=== PATIENT | female | born 1970 | race Caucasian/White ===

== ENCOUNTER 2021-10-16 09:42 | Outpatient (CLI) | payer OTHER ==
--- NOTE | 2021-10-16 13:57 | MRI Report ---
PROCEDURE: Shoulder LT W/O INDICATIONS: BRACHIAL PLEXUS DISORDER TECHNIQUE: Noncontrast oblique coronal T2 fast spin echo with fat saturation, oblique sagittal T1 spin echo and T2 fast spin echo with fat saturation, axial T1 spin echo and T2 fast spin echo with fat saturation t hrough the shoulder. COMPARISON: None. FINDINGS: Image quality: Excellent. Rotator cuff: Mild supraspinatus and infraspinatus tendinosis. The teres minor tendon is intact. The subscapularis tendon is also intact. No significant rotator cuff tendon tear is seen. No disproporti tomasa rotator cuff muscle atrophy. Bones and bursae: No acute bone marrow contusion or fracture. Chronic traction cystic changes are se en at the posterosuperior humeral head. Moderate degenerative changes are seen at the acromioclavicu lar joint with subchondral edema and mild subchondral cystic changes. No pathologic subacromial/subde ltoid bursal fluid is present. No significant glenohumeral joint effusion is present. Capsule and soft tissues: No large displaced labral tear. The long head of the biceps tendon is inta ct. The rotator interval appears normal, without fibrosis. The inferior glenohumeral ligament is nor mal in thickness. Left axillary lymph nodes are seen measuring up to 8 mm in short axis diameter wit h preserved fatty destiny, likely benign. No mass is seen along the course of the axillary nerve or the included portions of the brachial plexus. IMPRESSION: 1.Mild supraspinatus and infraspinatus tendinosis. No significant rotator cuff tendon tear. No focal muscle atrophy or denervation changes are seen. 2.Moderate acromioclavicular joint osteoarthrosis with subchondral edema and subchondral cystic barnett es. Reviewed by: Jay Kaba MD on 10/16/2021 1:56 PM PDT Approved by: Jay Kaba MD on 10/16/2021 1:56 PM PDT Station ID: [id number]
--- NOTE | 2021-10-16 14:35 | MRI Report ---
PROCEDURE: Cervical Spine W/O INDICATIONS: BROCIAL PLEXUS DISORDER TECHNIQUE: Noncontrast sagittal T1 spin echo and T2 fast spin echo, sagittal STIR, foraminal oblique sagittal T2 fast spin echo, and axial gradient echo or T2 fast spin echo through the cervical spine. COMPARISON: None. FINDINGS: Image quality: Excellent. Alignment and Curvature: There is trace retrolisthesis of C5 on C6. Bone Marrow: Marrow demonstrates normal overall signal. Spinal Cord: Visualized spinal cord has normal size and signal. No cerebellar tonsillar herniation. Paraspinous Soft Tissues: No paravertebral masses. Prevertebral soft tissues are normal in thicknes s. Discs Moderate disc desiccation is present at C5-6. C2-C3: No disc bulge, spinal stenosis or foraminal narrowing. C3-C4: No disc bulge, spinal stenosis or foraminal narrowing. C4-C5: Minimal disc bulge without spinal stenosis or foraminal narrowing. C5-C6: Mild disc bulge with small superimposed posterior left posterior paracentral protrusion with indentation of the anterior thecal sac as well as anterior cord. Mild to moderate bilateral foraminal narrowing. C6-C7: Minimal disc bulge without spinal stenosis or foraminal narrowing. C7-T1: No disc bulge, spinal stenosis or foraminal narrowing. IMPRESSION: Mild disc bulge with superimposed protrusion at C5-6. Mild to moderate bilateral foraminal narrowing at C5-6. Reviewed by: Jaqueline Garcia MD on 10/16/2021 2:33 PM PDT Approved by: Jaqueline Garcia MD on 10/16/2021 2:33 PM PDT Station ID: [id number]
== END 2021-10-16 09:43 | disposition home or self-care (01) ==
LOC: DI 09:42
PROVIDERS: ATTEND Student in an Organized Health Care Education/Training Program
DX: M75.82 Other shoulder lesions, left shoulder (principal); M19.012 Primary osteoarthritis, left shoulder; R93.6 Abnormal findings on diagnostic imaging of limbs; M50.222 Other cervical disc displacement at C5-C6 level; M48.02 Spinal stenosis, cervical region

== ENCOUNTER 2021-12-10 07:48 | Outpatient (CLI) | payer OTHER ==
--- NOTE | 2021-12-10 12:44 | XRAY Report ---
PROCEDURE: Shoulder 3 View LT INDICATIONS: LEFT SHOULDER PAIN TECHNIQUE: 4 views of the shoulder were acquired. COMPARISON: MRI left shoulder, 10/16/2021. FINDINGS: Bones: No fractures or dislocations. No suspicious bony lesions. Mild acromioclavicular and glenoh umeral joint degeneration. Visualized ribs appear intact. Soft tissues: Calcific densities over the humeral head are suspicious for rotator cuff calcific tendi nitis. IMPRESSION: 1. Mild degenerative joint disease. 2. Rotator cuff calcific tendinitis. Reviewed by: Rony Sanchez MD on 12/10/2021 12:42 PM PDT Approved by: Rony Sanchez MD on 12/10/2021 12:42 PM PDT Station ID: [id number]
== END 2021-12-10 23:59 | disposition home or self-care (01) ==
LOC: DI.WOS 07:48
PROVIDERS: ATTEND Physician Assistant
DX: M19.012 Primary osteoarthritis, left shoulder (principal); M75.32 Calcific tendinitis of left shoulder